=== PATIENT | male | born 1950 | race Caucasian/White ===

== ENCOUNTER → 2019-01-28 | Outpatient (CLI) | payer MEDICARE ==
[~2019-01-28] MED LIST: ATOR10TA PO; CHOL500045 PO; METF500T17 PO; OXYB5TAB7 PO; TAMS-11 PO
== END | disposition home or self-care (01) ==
LOC: CFH 07:04
PROVIDERS: ATTEND Urology
DX: N31.9 Neuromuscular dysfunction of bladder, unspecified (principal)
CPT/HCPCS: 76770

== ENCOUNTER → 2019-02-09 | Outpatient (CLI) | payer MEDICARE ==
[~2019-02-09] VITALS: Ht 175.3 cm; Wt 95.0 kg
[~2019-02-09] MED LIST changes: +NATA300V2 IV; +NATALIZUMAB 300 MG in SODIUM CHLORIDE 0.9% 100 ML IV ONE
[2019-02-09 09:50] VITALS: BP 165/96
[2019-02-11 07:49] VITALS: BP 130/87
== END | disposition home or self-care (01) ==
LOC: INFUSION 06:54
PROVIDERS: ATTEND Psychiatry & Neurology Neurology
DX: G35 Multiple sclerosis (principal)
CPT/HCPCS: 96365; 99211; G0463

== ENCOUNTER 2019-03-04 09:23 | Outpatient (CLI) | payer MEDICARE ==
[~2019-03-04 09:23] MED LIST changes: +LEVO750T26 PO; -NATALIZUMAB 300 MG in SODIUM CHLORIDE 0.9% 100 ML IV ONE; +NYST15PO2 TP
[2019-03-04] MEDS ORDERED: GADOBUTROL 10 MMOL/10 ML VIAL ONE (10:00)
== END 2019-03-04 23:59 | disposition home or self-care (01) ==
LOC: CFH 09:23
PROVIDERS: ATTEND Psychiatry & Neurology Neurology
DX: M48.02 Spinal stenosis, cervical region (principal); M47.813 Spondylosis without myelopathy or radiculopathy, cervicothoracic region; M46.02 Spinal enthesopathy, cervical region; G31.9 Degenerative disease of nervous system, unspecified; G93.9 Disorder of brain, unspecified; G35 Multiple sclerosis
CPT/HCPCS: 70553; 72156; A9585

== ENCOUNTER 2019-07-03 17:23 | Inpatient (IN) | payer MEDICARE ==
[~2019-07-03] VITALS: Ht 175.3 cm; Wt 91.7 kg
[~2019-07-03 17:23] MED LIST changes: +OXYB5TAB10 PO; -OXYB5TAB7 PO
--- NOTE | 2019-07-03 17:45 | NUR ---
ASSUMED CARE OF PT. PT C/O LEG WEAKNESS AND GLF WHEN LEGS GAVE OUT ON HIM WHILE STANDING TODAY. PT DENIED ANY CP, SOB, OR DIZZINESS PRIOR. PT ON MONITOR. PT HAS HX OF MS AND HAS ULLOA IN PLACE PL[employer]INE[employer]. UA SNET TO THE LAB AND BLOOD DRAWN. WAITING ON RESULTS.
[2019-07-03 17:58] LABS: BASOPHILS # (AUTO) 0.04 x10^3/uL (0-0.1); BASOPHILS % (AUTO) 0 % (0-1); EOSINOPHILS # (AUTO) 0.04 x10^3/uL (0-0.4); EOSINOPHILS % (AUTO) 1 % (1-7); LYMPHOCYTES # (AUTO) 1.14 x10^3/uL (1-3.4); LYMPHOCYTES % (AUTO) 12 % (22-44); MD NO; MEAN CORPUSCULAR HEMOGLOBIN 30.6 pg (27.5-34.5); MEAN CORPUSCULAR HGB CONC 33.5 g/dL (33.2-36.2); MEAN CORPUSCULAR VOLUME 91.3 fL (81-97); MEAN PLATELET VOLUME 8.6 fL (7.4-10.4); MONOCYTES # (AUTO) 0.53 x10^3/uL (0.2-0.8); MONOCYTES % (AUTO) 6 % (2-9); NEUTROPHILS # (AUTO) 7.46 x10^3/uL (1.8-6.8); NEUTROPHILS % (AUTO) 81 % (42-75); PLATELET COUNT 176 x10^3/uL (130-400); RED BLOOD COUNT 4.91 x10^6/uL (4.38-5.82); RED CELL DISTRIBUTION WIDTH 15.6 % (9.4-14.8)
[2019-07-03 18:10] LABS: ALANINE AMINOTRANSFERASE 72 U/L (12-78); ALBUMIN 3.3 g/dL (3.4-5.0); ANION GAP 7 mmol/L (5-15); CHLORIDE 107 mmol/L (98-107)
[2019-07-03 18:12] LABS: ALKALINE PHOSPHATASE 116 U/L (45-117); BILIRUBIN,TOTAL 0.9 mg/dL (0.2-1.0); TOTAL PROTEIN 7.2 g/dL (6.4-8.2)
[2019-07-03 18:16] LABS: CULTURE INDICATED? YES; MICROSCOPIC INDICATED
--- NOTE | 2019-07-03 18:30 | NUR ---
CHART UP FOR MD RECHECK.
--- NOTE | 2019-07-03 18:47 | NUR ---
DR. SALEH AT BEDSIDE. PT TO BE ADMITTED. SPOUSE OF PT,VILMA, NOTIFIED.
[2019-07-03] MEDS ORDERED: SODIUM CHLORIDE FLUSH 10ML SYR IVF ONE (19:00)
[2019-07-03] MEDS ORDERED: CEFTRIAXONE PMX 1GM/50ML 50 ML IVPB ONE (19:00)
[2019-07-03] MEDS ORDERED: CEFTRIAXONE PMX 1GM/50ML 50 ML ONE (19:12)
--- NOTE | 2019-07-03 19:15 | NUR ---
PT YELLING OUT"HELP ME". PT REPORTS HE IS COLD WHEN ASKED. PT GIVEN BLANKETS.
[2019-07-03] MEDS ORDERED: ACETAMINOPHEN 500 MG TABLET ONE (19:29)
[2019-07-03] MEDS ORDERED: ACETAMINOPHEN 500 MG TABLET PO ONE (19:30)
[2019-07-03] MEDS ORDERED: SODIUM CHLORIDE 0.9% 1,000ML IVBOLUS ONE (19:30)
[2019-07-03] MEDS ORDERED: SODIUM CHLORIDE FLUSH 10ML SYR IVF PRN (19:30)
--- NOTE | 2019-07-03 19:30 | NUR ---
PT BECOMING INCREASINGLY AGITATED. PT FELLES WARM TO THE TOUVCH. RECTAL TEMP TAKEN AND TMP WAS 101.6. DR. SALEH AWARE.
[2019-07-03] MEDS ORDERED: ATOR40TA78 PO (19:52)
--- NOTE | 2019-07-03 19:52 | NUR ---
Spoke to pt's medications as he was not for sure what he was taking and when he last took. Spouse unaware of when he took his medications, but reported he is only on two medications. Spouse read off his two bottles the information.
--- NOTE | 2019-07-03 20:22 | NUR ---
PT TAKEN TO CT FOR STAT HEAD SCAN AFTER PT WAS NOT RESPONDING TO HOSPITALIST AND WEAK ON LEFT ARM. THIS RN WAS NOTIFIED OF THIS AFTER THE FACT AND IT WAS LAST SEEN BY THIS RN THAT PT WAS BEING TAKEN TO THE [facility]. AFTER GIVING REPORT TO ABIMAEL ON [address] ABOUT 20 MINUTES AGO, PT WAS ABLE TO MOVE ALL EXTREMITIES AND WAS A+O X4. WILL REASSESS ON PT'S RETURN FROM CT. PT'S LEVEL OF CARE CHANGED TO MED TLE. PT HAS BEEN ON APPLICATION [employer]OP[employer]SULT[employer] SINCE 1930 WHEN LEVEL OF CARE WAS BEING DEBATED BY HOSPITALIST.
[2019-07-03] MEDS ORDERED: DOCUSATE 100 MG CAPSULE PO PRN (21:30)
[2019-07-03] MEDS ORDERED: ONDANSETRON 2MG/ML, 2ML IVPush PRN (21:30)
[2019-07-03] MEDS ORDERED: ENOXAPARIN 40 MG/0.4 ML SQ SCH (21:30)
[2019-07-03] MEDS ORDERED: CEFTRIAXONE PMX 1GM/50ML 50 ML IV ONE (21:30)
[2019-07-03] MEDS ORDERED: ACETAMINOPHEN 325 MG TABLET PO PRN (21:30)
[2019-07-03] MEDS ORDERED: TEMAZEPAM 15 MG CAPSULE PO PRN (21:30)
[2019-07-03 21:40] VITALS: BP 137/79
[2019-07-03] MEDS: ATORVASTATIN 40 MG TABLET PO SCH (21:52)
[2019-07-03] MEDS: SODIUM CHLORIDE 0.9% 1,000 ML IV SCH (21:52)
[2019-07-04 00:07] LABS: RAPID INFLUENZA A Negative (Negative); RAPID INFLUENZA B Negative (Negative)
[2019-07-04 02:40] VITALS: BP 116/67
[2019-07-04] MEDS: SODIUM CHLORIDE 0.9% 1,000 ML IV SCH ×3 (04:57→22:40)
[2019-07-04 05:33] LABS: MEAN CORPUSCULAR HEMOGLOBIN 30.7 pg (27.5-34.5); MEAN CORPUSCULAR HGB CONC 33.4 g/dL (33.2-36.2); MEAN CORPUSCULAR VOLUME 91.7 fL (81-97); MEAN PLATELET VOLUME 8.8 fL (7.4-10.4); PLATELET COUNT 155 x10^3/uL (130-400); RED BLOOD COUNT 4.29 x10^6/uL (4.38-5.82); RED CELL DISTRIBUTION WIDTH 16.2 % (9.4-14.8)
[2019-07-04 05:34] LABS: ANION GAP 7 mmol/L (5-15); CALCIUM 8.2 mg/dL (8.5-10.1); CHLORIDE 110 mmol/L (98-107)
[2019-07-04 05:37] LABS: CREATININE 1.44 mg/dL (0.7-1.3)
[2019-07-04 05:51] LABS: BASOPHILS # (AUTO) 0.01 x10^3/uL (0-0.1); BASOPHILS % (AUTO) 0 % (0-1); EOSINOPHILS # (AUTO) 0.08 x10^3/uL (0-0.4); EOSINOPHILS % (AUTO) 1 % (1-7); LYMPHOCYTES # (AUTO) 2.32 x10^3/uL (1-3.4); LYMPHOCYTES % (AUTO) 17 % (22-44); MD SCAN; MONOCYTES # (AUTO) 0.83 x10^3/uL (0.2-0.8); MONOCYTES % (AUTO) 6 % (2-9); NEUTROPHILS # (AUTO) 10.23 x10^3/uL (1.8-6.8); NEUTROPHILS % (AUTO) 76 % (42-75)
[2019-07-04] MEDS ORDERED: INSULIN LISPRO 100 UNITS/ML, PEN SQ-INSULIN SCH (07:00)
[2019-07-04 08:18] VITALS: BP 97/61
[2019-07-04] MEDS: INSULIN LISPRO 100 UNITS/ML, PEN SQ-INSULIN SCH ×3 (11:00→20:50)
[2019-07-04] MEDS: PIPERACILLIN/TAZO/PMX 3.375GM 50 ML IV SCH ×2 (11:03→17:38)
[2019-07-04 11:09] LABS: HEMOGLOBIN A1C 6.4 % (4.2-6.3)
[2019-07-04 13:34] VITALS: BP 106/67
[2019-07-04] MEDS: ATORVASTATIN 40 MG TABLET PO SCH (20:50)
[2019-07-04] MEDS ORDERED: CEFTRIAXONE PMX 2GM/50ML 50 ML IV SCH (21:00)
[2019-07-04 21:25] VITALS: BP 111/63
[2019-07-04] MEDS ORDERED: ENOXAPARIN 30 MG/0.3 ML SQ SCH (21:30)
[2019-07-05 01:38] VITALS: BP 106/61
[2019-07-05] MEDS: PIPERACILLIN/TAZO/PMX 3.375GM 50 ML IV SCH ×2 (02:22→09:57)
[2019-07-05] MEDS: SODIUM CHLORIDE 0.9% 1,000 ML IV SCH ×2 (06:23→13:47)
[2019-07-05 07:10] LABS: ANION GAP 4 mmol/L (5-15); BASOPHILS # (AUTO) 0.03 x10^3/uL (0-0.1); BASOPHILS % (AUTO) 0 % (0-1); CALCIUM 8.3 mg/dL (8.5-10.1); CHLORIDE 114 mmol/L (98-107); CREATININE 1.14 mg/dL (0.7-1.3); EOSINOPHILS # (AUTO) 0.34 x10^3/uL (0-0.4); EOSINOPHILS % (AUTO) 4 % (1-7); LYMPHOCYTES # (AUTO) 2.56 x10^3/uL (1-3.4); LYMPHOCYTES % (AUTO) 28 % (22-44); MD NO; MEAN CORPUSCULAR HEMOGLOBIN 31.1 pg (27.5-34.5); MEAN CORPUSCULAR HGB CONC 33.3 g/dL (33.2-36.2); MEAN CORPUSCULAR VOLUME 93.2 fL (81-97); MEAN PLATELET VOLUME 9.1 fL (7.4-10.4); MONOCYTES # (AUTO) 0.41 x10^3/uL (0.2-0.8); MONOCYTES % (AUTO) 5 % (2-9); NEUTROPHILS # (AUTO) 5.94 x10^3/uL (1.8-6.8); NEUTROPHILS % (AUTO) 64 % (42-75); PLATELET COUNT 152 x10^3/uL (130-400); RED CELL DISTRIBUTION WIDTH 16.5 % (9.4-14.8)
[2019-07-05 07:19] VITALS: BP 125/72
[2019-07-05] MEDS: INSULIN LISPRO 100 UNITS/ML, PEN SQ-INSULIN SCH ×2 (07:56→11:55)
[2019-07-05] MEDS ORDERED: CIPR500T87 PO (11:55)
[2019-07-05] MEDS ORDERED: cipro (11:55)
[2019-07-05 12:33] VITALS: BP 145/84
[2019-07-05] MEDS ORDERED: CIPROFLOXACIN 500 MG TABLET PO SCH (21:00)
[2019-07-05] MEDS ORDERED: ENOXAPARIN 40 MG/0.4 ML SQ SCH (21:00)
== END 2019-07-05 15:18 | disposition home or self-care (01) | DRG 698 ==
LOC: ED 18:56 → EDIP 19:10 → 4EST 20:56
PROVIDERS: ADMIT Family Medicine; ATTEND Internal Medicine Infectious Disease
PROC: 0T9B70Z Drainage of Bladder with Drainage Device, Via Natural or Artificial Opening (ICD-10-PCS; principal; 2019-07-03)
DX: T83.518A Infection and inflammatory reaction due to other urinary catheter, initial encounter (principal); A41.51 Sepsis due to Escherichia coli [E. coli]; G93.41 Metabolic encephalopathy; N39.0 Urinary tract infection, site not specified; N17.9 Acute kidney failure, unspecified; D89.9 Disorder involving the immune mechanism, unspecified; E11.9 Type 2 diabetes mellitus without complications; E78.5 Hyperlipidemia, unspecified; F17.210 Nicotine dependence, cigarettes, uncomplicated; G35 Multiple sclerosis; N31.9 Neuromuscular dysfunction of bladder, unspecified; Y84.6 Urinary catheterization as the cause of abnormal reaction of the patient, or of later complication, without mention of misadventure at the time of the procedure; W06.XXXA Fall from bed, initial encounter; Y93.89 Activity, other specified; Y92.89 Other specified places as the place of occurrence of the external cause; Y99.8 Other external cause status; Z96.649 Presence of unspecified artificial hip joint
CPT/HCPCS: 36415; 70450; 80048; 80053; 81001; 82962; 83036; 83605; 85025; 87040; 87077; 87086; 87186; 87400; 96360; G0378; J0696; J1650; J2543; J7030

== ENCOUNTER 2019-09-05 01:41 | Emergency (ER) | payer MEDICARE ==
[~2019-09-05] VITALS: Ht 175.3 cm; Wt 87.0 kg
[~2019-09-05 01:41] MED LIST changes: +ATOR40TA78 PO; +CIPR500T87 PO; +cipro
[2019-09-05 01:45] VITALS: BP 152/101
--- NOTE | 2019-09-05 02:18 | NUR ---
Pt presents to ed c/o catheter not draining approrpiately. Is seeing a urologist and has a plan to see them saturday for catheter replacement. This catheter in for last 28 days per pt report. This rn attempted to flush and not able to get catheter to flow appropriately. Catheter replaced and pt given supplies for home catheter care.
== END 2019-09-05 02:31 | disposition home or self-care (01) ==
LOC: ED 02:25
DX: T83.098A Other mechanical complication of other urinary catheter, initial encounter (principal); E11.9 Type 2 diabetes mellitus without complications
CPT/HCPCS: 51702; 99284